=== PATIENT | male | born 1950 ===

== ENCOUNTER 2022-04-29 09:00 | Day surgery (SDC) | payer OTHER ==
[~2022-04-29] VITALS: Ht 170.2 cm; Wt 79.4 kg
[~2022-04-29 09:00] MED LIST: CRESTOR20 MG PO; ECOTRIN81 MG PO; GABAPENTIN300 M2 PO; PROZAC20 MG PO; VASOTEC20 M1 PO; [UNRECOGNIZED DRUG - OTHER] PO
[2022-04-29] MEDS ORDERED: LEVOFLOXACIN500 MG PO (16:27)
[2022-04-29] MEDS ORDERED: TRAMADOL HCL50 MG PO (16:28)
== END 2022-04-29 19:30 | disposition home or self-care (01) ==
LOC: CIR.AMB 09:00
PROVIDERS: ATTEND Surgery
DX: D30.3 Benign neoplasm of bladder (principal); N30.90 Cystitis, unspecified without hematuria; I10 Essential (primary) hypertension; I51.9 Heart disease, unspecified; Z79.82 Long term (current) use of aspirin; F12.90 Cannabis use, unspecified, uncomplicated; Z87.891 Personal history of nicotine dependence; Z91.018 Allergy to other foods; Z86.16 Personal history of COVID-19; Z20.822 Contact with and (suspected) exposure to COVID-19